=== PATIENT | male | born 1995 | race Caucasian/White ===

== ENCOUNTER 2016-08-27 00:46 | Emergency (ER) ==
[2016-08-27] MEDS ORDERED: DUONEB (A & A) INH ONE (00:48)
[2016-08-27] MEDS ORDERED: XOPENEX NEB INH ONE (02:31)
[2016-08-27] MEDS ORDERED: PULMICORT INH ONE (02:31)
--- NOTE | 2016-08-27 02:41 | PROVIDER DOCUMENTATION ---
HPI-Respiratory General - General Source: patient, family (FATHER) - History of Present Illness-Resp Severity in ED: reports: mild Onset/Duration: reports: 1 hour ago Timing: reports: still present Cough Quality/Degree: reports: no cough Modifying Factors: improves with: albuterol inhaler Similar Symptoms Previously?: No Recently seen or treated by another doctor?: No <Shailesh Smith - Last Filed: 08/27/16 02:31> - History of Present Illness-Resp Quality of Pain: reports: pressure Onset/Duration: reports: 1-3 hours ago Timing: reports: still present Exposure: reports: allergen exposure Cough Quality/Degree: reports: moderate Episode Frequency: rare episodes Current Respiratory Medication Therapy: Initiated none Modifying Factors: improves with: exertion Associated Symptoms: reports: cough, shortness of breath Similar Symptoms Previously?: Yes Recently seen or treated by another doctor?: No <Marino Ackerman - Last Filed: 08/27/16 03:17> - General Chief Complaint: Asthma Attack Stated Complaint: ASTHMA ATTACK Time Seen by Provider: 08/27/16 02:22 Allergies/Adverse Reactions: Patient Allergies Allergy/AdvReac Type Severity Reaction Status Date / Time No Known Allergies Allergy Verified 08/27/16 00:55 Home Medications: Cetirizine HCl [Zyrtec] 10 mg PO DAILY 08/27/16 - History of Present Illness-Resp Nature of Presenting Problem: 21 YOWM WITH HX OF ASTHMA, PRESENTS TO ED WITH C/O ASTHMA ATTACK 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 PT FATHER STATES PT HAS NOT HAD A ASTHMA ATTACK IN SEVERAL YEARS. PT'S DAD THINKS IT WAS A ALLERGIC REACTION. (Shailesh Smith) Review of Systems - Adult - REVIEW OF SYSTEMS - ADULT Constitutional: denies: chills, fever Cardiovascular: denies: chest pain, palpitations, syncope Respiratory: reports: wheezing Gastrointestinal: denies: abdominal pain, diarrhea, nausea, vomiting Musculoskeletal: denies: back pain, neck pain Neurological: denies: dizziness/vertigo, headache/migraines, syncope <Shailesh Smtih - Last Filed: 08/27/16 02:31> Past History - Adult - PAST MEDICAL HISTORY-ADULT Review of Records: reports: Nursing Assessment Review, Medications Reviewed Respiratory: reports: asthma - IMMUNIZATION STATUS Childhood Immunizations: See Nurse Assessment Flu Vaccine: See Nurse Assessment - SOCIAL HISTORY Smoking: quit less than 1 year, cigarettes Substance Use: alcohol Alcohol Use Frequency: occasionally Number of drinks per typical drinking period:: 3-4 drinks Living Situation: family <Shailesh Smith - Last Filed: 08/27/16 02:31> Physical Exam-General - CONSTITUTIONAL General Appearance: alert, mild distress - EYES Eyes: PERRL/EOMI, pink conjunctivae - HEAD, EARS, NOSE, MOUTH & THROAT HENMT: normocephalic/atraumatic, moist mucous membranes - NECK Neck: non-tender, full range of motion, supple - RESPIRATORY Respiratory: chest non-tender, lungs clear, normal breath sounds - CARDIOVASCULAR Cardiovascular: normal peripheral pulses, tachycardia - GASTROINTESTINAL (ABDOMEN) Abdominal Exam: normal bowel sounds, non tender, soft - LYMPHATIC Lymphatic: no adenopathy - MUSCULOSKELETAL Back Exam: normal inspection, no CVA tenderness, no vertebral tenderness Extremity: normal range of motion, non-tender - SKIN Integumentary: normal color, normal turgor, warm/dry - NEUROLOGIC Neurologic: grossly normal - PSYCHIATRIC Psych/Mental Status: oriented x 3 <Shailesh Smith - Last Filed: 08/27/16 02:31> Departure <Shailesh Smith - Last Filed: 08/27/16 02:31> - Departure Time of Disposition Order: 03:15 Certified Medical Emergency: Emergent <Marino Ackerman - Last Filed: 08/27/16 03:17> - Departure DIAGNOSIS: Asthma with acute exacerbation in adult Disposition: HOME 01 Condition: Good Prescriptions: Albuterol Sulfate [Proair Hfa] 2 puff IH Q4-6H PRN PRN #1 [email or web address] PRN Reason: Wheezing Budesonide/Formoterol Inhaler [Symbicort 160/4.5 Microgm Inhaler] 2 puff INH RTBID #1 inhaler Referrals: None,PCP [Primary Care Provider] - Attestation - Scribe Verification/Attestation Scribe:: Shailesh Smith Acting as Scribe for:: Marino Ackerman Scribe documention review:: This chart was documented by a scribe and accurately reflects the service the provider performed and the decisions made by the provider. <Shailesh Smith - Last Filed: 08/27/16 02:31> Physician Attestation
[2016-08-27] MEDS ORDERED: DECADRON IM ONE (03:20)
[2016-08-27 03:27] VITALS: BP 124/84
--- NOTE | 2016-08-27 09:49 | Diag Imaging Result Document ---
PROCEDURE NAME: CHEST-2 VIEWS - 08/27/2016 CHEST, TWO VIEWS: INDICATION: Wheezing. COMPARISON: No comparison studies. FINDINGS: The cardiomediastinal silhouette is within normal limits. The pulmonary vasculature is not congestion. No infiltrates or effusions are identified. There is no pneumothorax. IMPRESSION: No acute cardiopulmonary abnormality.
== END 2016-08-27 03:41 | disposition home or self-care (01) ==
LOC: P.ED 00:46
DX: J45.901 Unspecified asthma with (acute) exacerbation (principal); R05 Cough; R06.02 Shortness of breath; R06.2 Wheezing; R00.0 Tachycardia, unspecified; Z87.891 Personal history of nicotine dependence
CPT/HCPCS: 71020; 94640; 96372